=== PATIENT | female | born 1940 | race Two or more races ===

== ENCOUNTER 2020-11-12 16:10 | Emergency (ER) | payer OTHER, MEDICAID ==
[~2020-11-12] VITALS: Ht 154.9 cm; Wt 64.1 kg
[~2020-11-12 16:10] MED LIST: DIPH25TA17 PO; DOCU250C16 PO; HYDR-4031 PO; LANS30CA55 PO; LEVO100T13 PO; NAPR-1193 PO; POLY119P8 PO; PREG75 PO; RANI150T7 PO; SERT25TA PO
[2020-11-12 16:31] VITALS: BP 106/75
[2020-11-12 16:41] LABS: GLUCOSE,POINT OF CARE 123 MG/DL (70-110)
[2020-11-12] MEDS ORDERED: LUBI8CAP PO (16:48)
[2020-11-12] MEDS ORDERED: LORA5SOL30 PO (16:48)
[2020-11-12] MEDS ORDERED: ATOR10TA69 PO (16:48)
[2020-11-12] MEDS ORDERED: MEMA10TA11 PO (16:48)
[2020-11-12] MEDS ORDERED: PARO10TA71 PO (16:48)
[2020-11-12] MEDS ORDERED: METF-960 PO (16:48)
[2020-11-12 17:55] LABS: COVID AG,FIA SOURCE NASOPHARYNGEAL
[2020-11-13] MEDS ORDERED: LORA10TA7 PO (12:28)
[2020-11-13] MEDS ORDERED: LEVO75 PO (12:28)
[2020-11-13] MEDS ORDERED: PANT40TA54 PO (12:28)
== END 2020-11-12 17:30 | disposition home or self-care (01) ==
LOC: EMS 16:10
DX: E03.9 Hypothyroidism, unspecified (principal); E78.5 Hyperlipidemia, unspecified; Z20.822 Contact with and (suspected) exposure to COVID-19; E78.00 Pure hypercholesterolemia, unspecified
CPT/HCPCS: 82962; 87426; 99283; C9803; U0003

== ENCOUNTER 2020-11-14 06:35 | Day surgery (SDC) | payer OTHER ==
[~2020-11-14] VITALS: Ht 147.3 cm; Wt 67.7 kg
[~2020-11-14 06:35] MED LIST changes: +ATOR10TA69 PO; -DIPH25TA17 PO; -DOCU250C16 PO; -HYDR-4031 PO; -LANS30CA55 PO; -LEVO100T13 PO; +LEVO75 PO; +LORA10TA7 PO; +LUBI8CAP PO; +MEMA10TA11 PO; +METF-960 PO; -NAPR-1193 PO; +PANT40TA54 PO; +PARO10TA71 PO; -POLY119P8 PO; -PREG75 PO; -RANI150T7 PO; -SERT25TA PO
[2020-11-14] MEDS ORDERED: SODIUM CHLORIDE 0.9% 1,000 ML IV ONE (07:00)
[2020-11-14] MEDS ORDERED: SODIUM CHLORIDE 0.9% 1,000 ML ONE (07:04)
[2020-11-14] MEDS ORDERED: FentaNYL CITRATE PF 100 MCG/2 ML VIAL ONE (08:03)
[2020-11-14] MEDS ORDERED: MIDAZOLAM HCL 2 MG/2 ML VIAL ONE (08:03)
[2020-11-14] MEDS ORDERED: MethylPREDNISolone SOD SUCC 125 MG/2 ML VIAL ONE (09:09)
[2020-11-14] MEDS ORDERED: MethylPREDNISolone SOD SUCC 125 MG/2 ML VIAL IVP ONE (09:15)
[2020-11-14] MEDS ORDERED: DOCU-350 PO (09:41)
[2020-11-14] MEDS ORDERED: PARO10TA89 PO (09:41)
[2020-11-14] MEDS ORDERED: OXYGEN THERAPY IH SCH (20:00)
== END 2020-11-14 10:55 | disposition home or self-care (01) ==
LOC: SURGERY 06:35
PROVIDERS: ATTEND Internal Medicine Critical Care Medicine
DX: J38.4 Edema of larynx (principal); B37.0 Candidal stomatitis; E78.00 Pure hypercholesterolemia, unspecified; I10 Essential (primary) hypertension; M17.0 Bilateral primary osteoarthritis of knee; E78.5 Hyperlipidemia, unspecified; I25.10 Atherosclerotic heart disease of native coronary artery without angina pectoris; G30.9 Alzheimer's disease, unspecified; F02.80 Dementia in other diseases classified elsewhere, unspecified severity, without behavioral disturbance, psychotic disturbance, mood disturbance, and anxiety; Z87.891 Personal history of nicotine dependence; Z90.49 Acquired absence of other specified parts of digestive tract; Z88.8 Allergy status to other drugs, medicaments and biological substances; Z98.890 Other specified postprocedural states
CPT/HCPCS: 31623; 31624; 71045; 87015; 87070; 87101; 87205; 87206; 87220; 88184; 88185; J2250; J2930; J3010; J7030; 88108; 88312